=== PATIENT | female | born 2000 | race African-American/Black ===

== ENCOUNTER 2021-06-26 13:47 | Emergency (ER) | payer MEDICAID ==
[~2021-06-26] VITALS: Ht 203.2 cm; Wt 109.0 kg
[2021-06-26 14:12] VITALS: BP 126/83
== END 2021-06-26 19:58 | disposition left against medical advice (07) ==
LOC: ER 13:47
DX: Z53.21 Procedure and treatment not carried out due to patient leaving prior to being seen by health care provider (principal)